=== PATIENT | male | born 1995 ===

== ENCOUNTER 2017-02-12 08:52 | Day surgery (SDC) | payer OTHER ==
[~2017-02-12 08:52] MED LIST: Buffered Lidocaine 0.9% SYRIN* 5 ML/SYR SYRINGE INTRADERM ONE; DiMENhydriNATE IV* 50 MG/ML VIAL IV PUSH PRN; Famotidine IV* 10 MG/ML 2 ML (20 mg) IV ONE; Morphine INJ* 2 MG/ML 1 ML CARPUJECT IV PRN; PROCHLORPERAZINE INJ 5 MG/ML 2 ML VIAL IV PRN; Scopolamine 1.5 mg* PATCH TRANSDERM PRN; oxyCODONE/Acetamin 5/325 MG* TAB PO PRN
[2017-02-12] MEDS ORDERED: fentaNYL* 50 MCG/ML 2 ML VIAL (100 MCG VIAL) ONE ×2 (08:55→13:33)
[2017-02-12] MEDS ORDERED: KETAMINE HCL* 50 MG/ML 10 ML VIAL ONE (08:55)
[2017-02-12] MEDS ORDERED: Midazolam* 1 MG/ML 5 ML VIAL (5 MG) ONE (08:55)
[2017-02-12] MEDS ORDERED: Famotidine IV* 10 MG/ML 2 ML (20 mg) ONE (09:06)
[2017-02-12] MEDS ORDERED: Buffered Lidocaine 0.9% SYRIN* 5 ML/SYR SYRINGE ONE (09:06)
[2017-02-12] MEDS ORDERED: ceFAZolin 2 GM PREMIX (*) 2 GM/50 ML BAG IVPB ONE (09:06)
[2017-02-12] MEDS ORDERED: Lidocaine 1% MPF wEPI 200,000* 30 ML SDV ONE (10:59)
[2017-02-12] MEDS ORDERED: Bupivacaine 0.5% SDV PF* 30 ML VIAL ONE (10:59)
[2017-02-12] MEDS ORDERED: Dexamethasone IV* 4 MG/ML 1 ML (4 MG) ONE (11:27)
[2017-02-12] MEDS ORDERED: Ketorolac INJ* 30 MG/ML 1 ML VIAL ONE (11:27)
[2017-02-12] MEDS ORDERED: Propofol* 10 MG/ML 20 ML BTL IV PUSH ONE (11:27)
[2017-02-12] MEDS ORDERED: Ondansetron INJ* 2 MG/ML VIAL ONE (11:27)
[2017-02-12] MEDS ORDERED: Lidocaine 2% PF * 5 ML VIAL ONE (11:28)
--- NOTE | 2017-02-12 13:29 | RAD ---
INDICATION: Surgical fixation of left foot fifth metatarsal fracture, stress fracture COMPARISONS: January 21, 2017 TECHNIQUE: Fluoroscopy was provided for a surgical procedure. Total fluoroscopy time is: 1 minute, 46 seconds FINDINGS: Spot images demonstrate fixation of the fifth metatarsal IMPRESSION: FLUOROSCOPY WAS PROVIDED FOR A SURGICAL PROCEDURE CPT II Codes: 6045F
[2017-02-12] MEDS: fentaNYL* 50 MCG/ML 2 ML VIAL (100 MCG VIAL) IV PRN ×2 (13:37→13:46)
[2017-02-12] MEDS ORDERED: oxyCODONE/Acetamin 5/325 MG* TAB ONE (13:45)
[2017-02-12 13:51] VITALS: BP 120/74
--- NOTE | 2017-02-13 06:33 | OP ---
DATE OF OPERATION: 02/12/17 - [facility] DATE OF : [birth year] SURGEON: Reddy Blanco MD [employer] TECHNICIAN: ANNETTE White ANESTHESIOLOGIST: Parveen Hemphill MD ANESTHESIA: General endotracheal anesthesia. PRE-OP DIAGNOSIS: Left fifth metatarsal fracture. POST-OP DIAGNOSIS: Left fifth metatarsal fracture. OPERATIVE PROCEDURE: Open reduction internal fixation of left fifth metatarsal fracture. 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 He sustained a left fifth metatarsal fracture and is being followed by Sports Medicine. There was no evidence of healing over the course of about 2 months. His x-rays were consistent with a stress type fracture in zone 3. We did discuss both operative and nonoperative treatment alternatives at length. After this discussion, he then decided he would like to move forward with an open reduction internal fixation. We did discuss the risks of surgery in careful detail in both the office as well as in the preoperative holding area. Our discussion regarding the risks of surgery included, but were not limited to , infection, wound problems, nerve injury, neuroma, RSD, persistent symptoms, hardware failure, nonunion, needing further surgery and even the remote chance of a catastrophic complication including loss of limb. IMPLANTS: Arthrex fifth metatarsal joint screw measuring 4.5 mm x 55 mm. TOURNIQUET TIME: None. COMPLICATIONS: None. ESTIMATED BLOOD LOSS: Minimal. STATUS: Stable from the operating room to the recovery room and then home. DESCRIPTION OF PROCEDURE: The patient and his parents were seen in the preoperative holding unit and informed written consent was obtained. The appropriate extremity was marked. The patient was then brought to the operating room and carefully positioned on the operating room table. Anesthesia was induced. All bony prominences were padded with great care. A chlorhexidine based pre-scrub was performed followed by a standard ChloraPrep and draped in a sterile fashion. A surgical safety pause was then conducted in which we confirmed the appropriate patient, extremity, planned procedure, availability of equipment, indication, and administration of prophylactic antibiotic, and DVT prophylaxis in the form of a compression boot on the nonsurgical extremity. We began by fluoroscopically identifying the course of the fifth metatarsal, we then made an approximately 1-cm incision in line with the fifth metatarsal, this was made approximately 2 cm proximal to the base of the fifth metatarsal. We carefully spread down to the base of the fifth metatarsal with great care to take and protect the branch of the sural nerve. I then placed a guidewire that was intramedullary that was carefully positioned along the course of the fifth metatarsal. The position was confirmed on multiple fluoroscopic views. The wire was driven into the metatarsal shaft and a mallet was also used to make sure it stayed in the shaft. There was some difficulty crossing the fracture site with the wire as expected. Fluoroscopy on multiple views again showed good placement of the guidewire. So, at this point, I overdrilled the guidewire utilizing a 3.5-mm cannulated drill. I used a drill sleeve to protect the soft tissues throughout the procedure. It was confirmed fluoroscopically that the fracture was not kept open while doing this. I then removed the drill and a 4.5-mm tap was used. There was excellent purchase with torquing of the foot while tapping. Both the tap and the guidewire were utilized to measure and gave us the length of 55 mm. I then placed a 4.5 x 55 mm solid screw. This had excellent purchase on the fifth metatarsal with good bite. At this time, final fluoroscopic images were obtained. I irrigated and then closed in layers utilizing 3-0 nylon suture. A sterile dressing was applied followed by splint on the ankle in neutral position. The patient was then awakened from anesthesia and transferred to the recovery room in stable condition. There were no complications. All needle and sponge counts were correct at the end of the case. POSTOPERATIVE PLAN: The patient will remain nonweightbearing for an anticipated duration of 6 weeks. The protocol was given to him and his parents. Followup will be in 2 weeks for likely suture removal and Steri-Strip application. I will plan on transitioning him into a tall Aircast boot at 2 weeks so he can begin gentle active range of motion in the ankle avoiding inversion. ATTESTATION: I attest that I was present, scrubbed, and performed the entire procedure myself. [id number]/[facility] #: [id number] MTDD
[2017-02-15] MEDS ORDERED: Scopolamine PATCH Remove* 1 NOTE MISC PATCH OFF ONE (05:42)
== END 2017-02-12 14:25 | disposition home or self-care (01) ==
LOC: OR 08:52
PROVIDERS: ATTEND Orthopaedic Surgery
DX: S92.355A Nondisplaced fracture of fifth metatarsal bone, left foot, initial encounter for closed fracture (principal); F17.200 Nicotine dependence, unspecified, uncomplicated; W21.31XA Struck by shoe cleats, initial encounter; Y93.66 Activity, soccer; Y92.322 Soccer field as the place of occurrence of the external cause
CPT/HCPCS: 76000; A9270-GY; C1713; J0690; J1100; J1885; J2001; J2250; J2405; J2704; J3010